=== PATIENT | female | born 1940 | race African-American/Black ===

== ENCOUNTER 2019-12-19 11:34 | Emergency (ER) | payer MEDICARE ==
[~2019-12-19] VITALS: Ht 152.4 cm; Wt 61.3 kg
[2019-12-19 11:56] VITALS: BP 155/77
[2019-12-19] MEDS ORDERED: HYDR-3164 PO (12:06)
--- NOTE | 2019-12-19 12:06 | PHYS DOC ---
Past Medical History Past Medical History: Diabetes-Type II, High Cholesterol, Hypertension Past Surgical History: No Surgical History Smoking Status: Never Smoker Alcohol Use: None General Adult EDM: Chief Complaint: SKIN RASH/ABSCESS HPI: HPI: Patient is a 79 year old female who presents with diagnosed with shingles in urgent care 1 week ago. She states that she was given acyclovir that she is been taking. She states she is been taking Tylenol every day extra strength for her pain but is not helping. She rates her pain 8 out of 10. Review of Systems: Review of Systems: Integument: rash with pain. [] Heart Score: Risk Factors: Risk Factors: DM, Current or recent (<one month) smoker, HTN, HLP, family history of CAD, obesity. Risk Scores: Score 0 - 3: 2.5% MACE over next 6 weeks - Discharge Home Score 4 - 6: 20.3% MACE over next 6 weeks - Admit for Clinical Observation Score 7 - 10: 72.7% MACE over next 6 weeks - Early Invasive Strategies Allergies: Allergies: Allergies Coded Allergies Type Severity Reaction Last Updated Verified Penicillins Allergy Unknown 12/19/19 Yes Physical Exam: PE: Constitutional: Well developed, well nourished, no acute distress, non-toxic appearance. [] HENT: Normocephalic, atraumatic, bilateral external ears normal, oropharynx moist, no oral exudates, nose normal. [] Eyes: PERRLA, EOMI, conjunctiva normal, no discharge. [] Neck: Normal range of motion, no tenderness, supple, no stridor. [] Cardiovascular:Heart rate regular rhythm, no murmur [] Lungs & Thorax: Bilateral breath sounds clear to auscultation [] Abdomen: Bowel sounds normal, soft, no tenderness, no masses, no pulsatile masses. [] Skin: Warm, dry, no erythema, Shingles rash left low back that wraps around to left low abdomen. [] Back: No tenderness, no CVA tenderness. [] Extremities: No tenderness, no cyanosis, no clubbing, ROM intact, no edema. [] Neurologic: Alert and oriented X 3, normal motor function, normal sensory function, no focal deficits noted. [] Psychologic: Affect normal, judgement normal, mood normal. [] Current Patient Data: Vital Signs: Vital Signs Date Time Temp Pulse Resp B/P (MAP) Pulse Ox O2 Delivery O2 Flow Rate FiO2 12/19/19 11:56 98.0 68 18 155/77 (103) 98 Room Air 98.0 EKG: EKG: [] Radiology/Procedures: Radiology/Procedures: [] Course & Med Decision Making: Course & Med Decision Making Pertinent Labs and Imaging studies reviewed. (See chart for details) Patient has a healing shingles rash to her left low back that wraps around to the left lower abdomen. Afebrile and denies any fevers. Patient states is a burning pain. Patient denies abdominal pain, nausea, vomiting, fever, chest pain, shortness of air, cough, headache, dizziness, visual changes, numbness or tingling. She is alert and oriented. Ambulatory with a steady gait. Speaks in full clear sentences. [] Dragon Disclaimer: Dragon Disclaimer: This electronic medical record was generated, in whole or in part, using a voice recognition dictation system. Departure Departure Impression: Primary Impression: Inadequate pain control Additional Impression: Shingles Qualified Codes: B02.9 - Zoster without complications Disposition: 01 HOME, SELF-CARE Condition: STABLE Referrals: JACINTA RONQUILLO MD (PCP) Patient Instructions: Shingles, [id number] Additional Instructions: Follow up with your primary care physician as soon as possible. Take medication as prescribed and with food. Continue taking all of your medications. Do not take more Tylenol with this medication but you can take Ibuprofen with it. Drink plenty of fluids. Scripts Docusate Sodium (COLACE) 100 Mg Capsule 1 CAP PO BID for 15 Days, #30 CAP 0 Refills Prov: REJI GIRON APRN 12/19/19 Hydrocodone/Apap 5-325 (NORCO 5-325 TABLET) 1 Each Tablet 1 TAB PO BID, #10 TAB Prov: REJI GIRON APRN 12/19/19 REJI GIRON APRN Dec 19, 2019 12:06
[2019-12-19] MEDS ORDERED: DOCU-109 PO (12:13)
== END 2019-12-19 12:28 | disposition home or self-care (01) ==
LOC: ER 11:34
DX: B02.9 Zoster without complications (principal); E11.9 Type 2 diabetes mellitus without complications; I10 Essential (primary) hypertension; E78.00 Pure hypercholesterolemia, unspecified; Z88.0 Allergy status to penicillin
CPT/HCPCS: 99283

== ENCOUNTER → 2021-05-07 | Outpatient (CLI) | payer MEDICARE ==
[~2021-05-07] MED LIST: DOCU-109 PO; HYDR-3164 PO
--- NOTE | 2021-05-07 16:24 | RAD ---
EXAM: XR CERVICAL SPINE 2-3V 05/07/2021 10:37 AM CLINICAL INDICATION: Neck pain COMPARISON: None TECHNIQUE: 3 views of the cervical spine FINDINGS: No acute fracture. Alignment is normal. There is severe disc space narrowing from C3-C4 th rough T1-T2 with small anterior osteophytes and endplate sclerosis. This is greatest at C3-C4. There is straightening of cervical lordosis. Mild multilevel facet arthrosis. The dens is intact. Preverteb ral soft tissue is normal. IMPRESSION: Severe multilevel degenerative disc disease, greatest at C3-C4. Electronically signed by: Chaparrita Acuna MD (05/07/2021 4:21 PM) [id number]
== END ==
LOC: RAD 10:05
PROVIDERS: ATTEND Family Medicine
DX: M50.31 Other cervical disc degeneration, high cervical region (principal); M47.812 Spondylosis without myelopathy or radiculopathy, cervical region; M48.03 Spinal stenosis, cervicothoracic region; M25.78 Osteophyte, vertebrae
CPT/HCPCS: 72040